=== PATIENT | male | born 1965 | race Caucasian/White ===

== ENCOUNTER 2020-01-19 11:32 | Emergency (ER) | payer BC ==
[~2020-01-19] VITALS: Ht 170.2 cm; Wt 97.5 kg
--- NOTE | 2020-01-19 11:34 | NUR ---
Patient ambulated to bed 1. RN evaluating patient at bedside.
[2020-01-19 11:37] VITALS: BP 107/101
--- NOTE | 2020-01-19 11:40 | NUR ---
PT C/O 4 DAYS COUGHING WITH SOB , AND 2 DAYS FEVER DOCUMENTED BY TOUCH, DENIES PMHX , PT AWAKE , ALERT, AFIBRILE , AMBULATORY WITH STEADY GAIT , SCE , CBS, ROUND SOFT NABS , NONTENDER.
--- NOTE | 2020-01-19 11:50 | NUR ---
XRAY AT BEDSIDE .
--- NOTE | 2020-01-19 12:37 | NUR ---
Patient appears to be resting in bed. Vital Signs within normal limits. Respirations even and unlabored.
--- NOTE | 2020-01-19 12:49 | NUR ---
Dr. Guerra is evaluating the patient at bedside.
--- NOTE | 2020-01-19 12:58 | NUR ---
Pt report given to LEONARD. Transfer of care at this time.
[2020-01-19 13:10] VITALS: BP 110/88
--- NOTE | 2020-01-19 13:16 | NUR ---
Patient discharged with v/s stable. Written and verbal after care instructions given and explained regarding cough. Patient alert, oriented and verbalized understanding of instructions. Ambulatory with steady gait. All questions addressed prior to discharge. ID band removed. Patient advised to follow up with PMD. Rx of prednisone and motrim given. Patient educated on indication of medication including possible reaction and side effects. Opportunity to ask questions provided and answered . Excuse from work given.
== END 2020-01-19 12:58 | disposition home or self-care (01) ==
LOC: MED 11:32 → EEVIPCON 11:32 → MED 12:58
DX: R05 Cough (principal); R06.02 Shortness of breath; H92.02 Otalgia, left ear
CPT/HCPCS: 71045; 99283; Q0092